=== PATIENT | female | born 1960 | race Caucasian/White ===

== ENCOUNTER 2017-07-02 10:46 | Day surgery (SDC) | payer OTHER ==
[~2017-07-02] VITALS: Ht 157.5 cm; Wt 99.4 kg
[~2017-07-02 10:46] MED LIST: BUPIVACAINE/PF 0.5% ONE
[2017-07-02] MEDS ORDERED: LACTATED RINGERS 1,000 ML IV SCH ×2 (11:10→14:59)
[2017-07-02 11:23] VITALS: BP 145/98
[2017-07-02] MEDS ORDERED: LIDOCAINE 1%, 2ML SQ PRN (11:30)
[2017-07-02] MEDS ORDERED: IRBE300T40 PO (11:38)
[2017-07-02] MEDS ORDERED: ESCI10TA10 PO (11:38)
[2017-07-02] MEDS ORDERED: ATOR10TA9 PO (11:38)
[2017-07-02] MEDS ORDERED: ALBU0.63 NEB (11:40)
[2017-07-02] MEDS ORDERED: FLUT12AE2 INH (11:40)
[2017-07-02] MEDS ORDERED: FENTANYL PF 100 MCG/2ML ONE ×4 (12:13→15:37)
[2017-07-02] MEDS ORDERED: MIDAZOLAM 1 MG/ML, 2ML ONE (12:13)
[2017-07-02] MEDS ORDERED: NEOSTIGMINE 1 MG/ML, 10ML ONE (13:45)
[2017-07-02] MEDS ORDERED: GLYCOPYRROLATE 0.2MG/1ML, 5ML ONE (13:45)
[2017-07-02] MEDS ORDERED: ONDANSETRON 2MG/ML, 2ML ONE (13:45)
[2017-07-02] MEDS ORDERED: ROCURONIUM 10 MG/ML ONE ×2 (13:45)
[2017-07-02] MEDS ORDERED: CEFAZOLIN 1,000 MG ONE (13:45)
[2017-07-02] MEDS ORDERED: DEXAMETHASONE 4 MG/ML, 5ML ONE (13:45)
[2017-07-02] MEDS ORDERED: PROPOFOL 10 MG/ML, 20ML ONE (13:45)
[2017-07-02] MEDS ORDERED: OXYcodone 5 MG/5 ML ORAL.SOL UDC PO PRN (14:00)
[2017-07-02] MEDS ORDERED: ACETAMINOPHEN 325 MG TABLET PO PRN (14:00)
[2017-07-02] MEDS ORDERED: ONDANSETRON 2MG/ML, 2ML IVPush PRN ×2 (14:00→15:00)
[2017-07-02] MEDS ORDERED: hydrALAzine 20 MG/ML, 1ML IV PRN (14:00)
[2017-07-02] MEDS ORDERED: MEPERIDINE/PF 25MG/0.5ML IVPush PRN (14:00)
[2017-07-02] MEDS ORDERED: LABETALOL 5MG/ML, 20ML IV PRN (14:00)
[2017-07-02] MEDS ORDERED: PROMETHAZINE 25 MG/ML, 1ML IV PRN (14:00)
[2017-07-02] MEDS ORDERED: ALBUTEROL SULFATE 2.5 MG/3 ML NPPB PRN (14:00)
[2017-07-02] MEDS ORDERED: THROMBIN 5,000 UNIT VIAL TP ONE (14:30)
[2017-07-02] MEDS ORDERED: TEMPLATE NON-FORMULARY MED. (Albuterol Sulfate (Albuterol Sulfate**) 1 VIAL) NEB PRN (15:00)
[2017-07-02] MEDS ORDERED: HYDROcodone/APAP 7.5-325MG/15ML UDC PO PRN ×2 (15:00)
[2017-07-02] MEDS ORDERED: morphine SULFATE 10 MG/ML, 1ML IVPush PRN (15:00)
[2017-07-02] MEDS: FENTANYL PF 100 MCG/2ML IV PRN ×3 (15:10→15:50)
[2017-07-02] MEDS ORDERED: OXYcodone 5 MG/5 ML ORAL.SOL UDC ONE (15:10)
[2017-07-02] MEDS ORDERED: ACETAMINOPHEN 650 MG/20.3 ML UDC ONE (15:10)
[2017-07-02] MEDS ORDERED: MEPERIDINE/PF 25MG/0.5ML ONE (15:14)
[2017-07-02] MEDS ORDERED: HYDROmorphone 1 MG/ML, 1ML ONE (15:31)
[2017-07-02] MEDS: HYDROmorphone 1 MG/ML, 1ML IV PRN ×2 (15:32→15:44)
[2017-07-02] MEDS ORDERED: MORPHINE SULFATE 4 MG/ML, 1ML ONE (16:34)
[2017-07-02] MEDS ORDERED: morphine SULFATE 10 MG/ML, 1ML ONE (17:24)
[2017-07-02] MEDS ORDERED: OXYcodone/APAP 5/325MG TABLET ONE (18:36)
[2017-07-02] MEDS ORDERED: OXYcodone/APAP 5/325MG TABLET PO ONE (19:00)
[2017-07-02] MEDS ORDERED: TEMPLATE NON-FORMULARY MED. (Fluticasone Propionate (Flovent Hfa 220 Mcg/Inh) 1 PUFF) INH SCH (21:00)
== END 2017-07-02 18:45 | disposition home or self-care (01) ==
LOC: OUT 10:46
PROVIDERS: ATTEND Thoracic Surgery (Cardiothoracic Vascular Surgery)
DX: K22.0 Achalasia of cardia (principal); J45.909 Unspecified asthma, uncomplicated; E78.5 Hyperlipidemia, unspecified; I10 Essential (primary) hypertension; F32.9 Major depressive disorder, single episode, unspecified; Z87.39 Personal history of other diseases of the musculoskeletal system and connective tissue; Z88.1 Allergy status to other antibiotic agents
CPT/HCPCS: 43774; J0690; J1100; J1170; J2175; J2250; J2270; J2405; J2704; J2710; J3010; J3490

== ENCOUNTER 2017-07-03 09:03 | Emergency (ER) | payer OTHER ==
[~2017-07-03] VITALS: Ht 157.5 cm; Wt 99.0 kg
[~2017-07-03 09:03] MED LIST changes: +ALBU0.63 NEB; +ATOR10TA9 PO; -BUPIVACAINE/PF 0.5% ONE; +ESCI10TA10 PO; +FLUT12AE2 INH; +IRBE300T40 PO
[2017-07-03] MEDS ORDERED: SODIUM CHLORIDE 0.9% 1,000 ML IV ONE (09:14)
[2017-07-03] MEDS ORDERED: MORPHINE SULFATE 4 MG/ML, 1ML IVPush PRN (09:30)
[2017-07-03] MEDS ORDERED: SODIUM CHLORIDE 0.9% 1,000ML IVBOLUS ONE (09:30)
[2017-07-03] MEDS ORDERED: PROMETHAZINE 25 MG SUPP PR PRN (09:30)
[2017-07-03] MEDS ORDERED: PROMETHAZINE 25 MG/ML, 1ML ONE (09:58)
[2017-07-03] MEDS ORDERED: PROMETHAZINE 25 MG/ML, 1ML IM ONE (10:00)
[2017-07-03 10:14] LABS: BLOOD UREA NITROGEN 11 mg/dL (7-18)
[2017-07-03 10:17] LABS: ASPARTATE AMINO TRANSFERASE 43 U/L (15-37)
[2017-07-03 10:33] LABS: HEMATOCRIT 39.5 % (34.6-47.8); HEMOGLOBIN 13.3 g/dL (11.7-16.4); WHITE BLOOD COUNT 10.7 x10^3/uL (3.4-10)
[2017-07-03 12:05] VITALS: BP 181/106
== END 2017-07-03 12:08 | disposition home or self-care (01) ==
LOC: ED 09:39
DX: R11.2 Nausea with vomiting, unspecified (principal); I10 Essential (primary) hypertension; J45.909 Unspecified asthma, uncomplicated
CPT/HCPCS: 36415; 80053; 83690; 85025; 96372; 99284; J2550

== ENCOUNTER → 2017-07-22 | Outpatient (CLI) | payer OTHER | END | disposition home or self-care (01) | LOC: CVU 09:29 | PROVIDERS: ATTEND Internal Medicine Cardiovascular Disease | DX: I65.23 Occlusion and stenosis of bilateral carotid arteries (principal) | CPT/HCPCS: 93880 ==

== ENCOUNTER 2018-04-07 11:46 | Day surgery (SDC) | payer OTHER ==
[~2018-04-07] VITALS: Ht 157.5 cm; Wt 119.0 kg
[2018-04-07] MEDS ORDERED: SODIUM CHLORIDE 0.9% 1,000 ML IV ONE (12:42)
[2018-04-07 12:49] VITALS: BP 118/71
[2018-04-07] MEDS ORDERED: DIPHENHYDRAMINE 50 MG/ML, 1ML IVPush ONE (13:00)
[2018-04-07] MEDS ORDERED: IBUP-1221 PO (13:04)
[2018-04-07] MEDS ORDERED: ATOR10TA PO (13:06)
[2018-04-07] MEDS ORDERED: POTA20TA6 PO (13:06)
[2018-04-07] MEDS ORDERED: IRBE1TAB13 PO (13:06)
[2018-04-07] MEDS ORDERED: CLON-364 PO (13:06)
[2018-04-07] MEDS ORDERED: LORA1TAB PO (13:09)
[2018-04-07] MEDS ORDERED: OMEP-110 PO (13:11)
[2018-04-07] MEDS ORDERED: FENTANYL PF 100 MCG/2ML ONE (13:18)
[2018-04-07] MEDS ORDERED: BIVALIRUDIN 250 MG ONE (13:18)
[2018-04-07] MEDS ORDERED: VERAPAMIL 2.5 MG/ML, 2ML ONE (13:18)
[2018-04-07] MEDS ORDERED: MIDAZOLAM 1 MG/ML, 5ML ONE (13:18)
[2018-04-07] MEDS ORDERED: LIDOCAINE 2%, 2ML ONE (13:19)
[2018-04-07] MEDS ORDERED: HEPARIN 1,000 UNITS/ML, 10ML ONE (13:19)
== END 2018-04-07 16:42 | disposition home or self-care (01) ==
LOC: CACL 11:46
PROVIDERS: ATTEND Internal Medicine Cardiovascular Disease
DX: I25.10 Atherosclerotic heart disease of native coronary artery without angina pectoris (principal); I10 Essential (primary) hypertension; Z88.1 Allergy status to other antibiotic agents; E78.2 Mixed hyperlipidemia
CPT/HCPCS: 93458; 99156; C1769; C1894; J1644; J2250; J3010; J3490; J7030; Q9967; J0583